=== PATIENT | male | born 1965 | race Caucasian/White ===

== ENCOUNTER → 2018-03-31 | Outpatient (CLI) | payer OTHER ==
[~2018-03-31] MED LIST: ISOVUE-370 76% 100ML VIAL (Q9967) As Ordered
== END ==
LOC: M RAD 08:22
DX: R93.89 Abnormal findings on diagnostic imaging of other specified body structures (principal); Z57.39 Occupational exposure to other air contaminants; Z91.82 Personal history of military deployment
CPT/HCPCS: Q9967